=== PATIENT | female | born 1980 | race Two or more races ===

== ENCOUNTER 2023-03-04 10:12 | Emergency (ER) | payer OTHER, SELFPAY ==
[2023-03-04 10:50] VITALS: BP 113/84; PULSE 88; RESP 18; TEMP 37.2; O2SAT 95; BMI 47.9
--- NOTE | 2023-03-04 10:51 | EXP.UTC ---
Discharge Plan Disposition Patient Disposition: Home, Self-Care Condition: Good Prescriptions Prescriptions: New fluconazole 150 mg tablet 150 mg PO ONCE Qty: 1 2RF methylprednisolone 4 mg Tablets,Dose Pack 4 mg PO DIRECTED Qty: 21 0RF guaifenesin [Mucinex] 600 mg tablet extended release 12hr 600 - 1,200 mg PO BIDP PRN (Reason: Congestion) Qty: 30 0RF amoxicillin-pot clavulanate 875-125 mg Tablet 1 tab PO Q12H Qty: 20 0RF No Action lamotrigine 25 mg tablet 50 mg PO BID Patient Comments: TAKE 2 TABLETS TWICE A DAY fluoxetine 20 mg capsule 20 mg PO DAILY Patient Comments: TAKE 1 CAPSULE BY MOUTH EVERY DAY FOR 90 DAYS bupropion HCl 150 mg tablet extended release 24 hr 150 mg PO DAILY Patient Comments: TAKE 1 TABLET BY MOUTH EVERY DAY FOR 90 DAYS lisdexamfetamine [Vyvanse] 30 mg capsule 30 mg PO DAILY Patient Comments: TAKE 1 CAPSULE BY MOUTH ONCE EVERY MORNING baclofen 10 mg tablet 10 mg PO BID Patient Comments: TAKE 1 TAB(S) ORALLY TWICE DAILY NEEDED 90 DAYS Referrals Follow up/Referrals: Toby Palacios MD [Primary Care Provider] - See instructions Activity Restrictions/Add. Instructions Additional Instructions/Restrictions: Drink plenty of fluids. Take tylenol or ibuprofen for pain or fever. Take the medications as directed. Follow up with your regular doctor. GO TO THE ER FOR ANY WORSENING SYMPTOMS Clinical Impressions Clinical Impression: Sinusitis Instructions Patient Instructions: Sinusitis, DI for Sinusitis Discharge ED Provider: Josh Cobb [facility] General Stated complaint: poss sinus infection Time Seen by Provider: 03/04/23 10:51 History of Present Illness Provider Complaint: She states that for the past 2 weeks she has had sinus congestion, ear pain and a cough. She denies chest congestion and shortness of breath. Related Data Home Medications Medication Instructions Recorded Confirmed baclofen 10 mg tablet 10 mg PO BID 03/04/23 03/04/23 bupropion HCl 150 mg 24 hr tablet, 150 mg PO DAILY 03/04/23 03/04/23 extended release fluoxetine 20 mg capsule 20 mg PO DAILY 03/04/23 03/04/23 lamotrigine 25 mg tablet 50 mg PO BID 03/04/23 03/04/23 lisdexamfetamine 30 mg capsule 30 mg PO DAILY 03/04/23 03/04/23 (Vyvanse) Previous Rx's Medication Instructions Recorded amoxicillin 875 mg-potassium 1 tab PO Q12H #20 tabs 03/04/23 clavulanate 125 mg tablet fluconazole 150 mg tablet 150 mg PO ONCE 1 dose #1 tab 03/04/23 guaifenesin 600 mg tablet, 600 - 1,200 mg PO BIDP PRN 03/04/23 extended release 12 hr (Mucinex) Congestion #30 tabs methylprednisolone 4 mg tablets in 4 mg PO DIRECTED #21 tabs 03/04/23 a dose pack Allergies Allergy/AdvReac Type Severity Reaction Status Date / Time metronidazole [From Flagyl] Allergy Verified 03/04/23 11:02 Sulfa (Sulfonamide Allergy Verified 03/04/23 11:02 Antibiotics) [facility] Disclaimer: The information contained in this section may have been updated after the patient was seen, as this information can be updated by other users. Social History Smoking Status: Never smoker alcohol intake: never current occupational status: employed Travel in the last 8 weeks: None ROS Obtained: Yes All systems reviewed & no additional complaints except as documented Constitutional Constitutional: Reports poor appetite Eyes Eyes: Reports system reviewed and no additional complaints, except as documented ENT Ears, Nose, Mouth, and Throat: Reports as per HPI Cardiovascular Cardiovascular: Reports system reviewed and no additional complaints, except as documented and Denies chest pain Respiratory Respiratory: Denies shortness of breath, Denies chest congestion, Reports cough, Denies stridor and Denies wheezing Gastrointestinal Gastrointestingal: Reports system reviewed and no additional complaints, except as documented; Keshawn
[2023-03-04 11:31] VITALS: BP 113/84; PULSE 88; RESP 18; TEMP 37.2; O2SAT 95
== END 2023-03-04 11:31 | disposition home or self-care (01) ==
PROVIDERS: Emergency Provider Nurse Practitioner Family; PCP Family Medicine
DX: J01.90 Acute sinusitis, unspecified (principal); R05.9 Cough, unspecified; H92.09 Otalgia, unspecified ear
CPT/HCPCS: 99204; 99212; G0463

== ENCOUNTER 2023-12-22 18:42 | Emergency (ER) | payer OTHER, SELFPAY ==
[2023-12-22 18:43] VITALS: BP 133/81; PULSE 88; RESP 16; TEMP 36.8; O2SAT 97; BMI 31.4
[2023-12-22 18:59] LABS: Microscopic, Urine URINE MICROSCOPIC (MICROSCOPIC)
--- NOTE | 2023-12-22 19:01 | HMH.EDGENADL ---
Discharge Plan Disposition Patient Disposition: Home, Self-Care Prescriptions Prescriptions: New lidocaine 5 % adhesive patch,medicated 1 patch topical DAILY Qty: 30 0RF Rx Instructions: leave on most painful area for up to 12 hrs No Action lamotrigine 25 mg tablet 50 mg PO BID Patient Comments: TAKE 2 TABLETS TWICE A DAY fluoxetine 20 mg capsule 20 mg PO DAILY Patient Comments: TAKE 1 CAPSULE BY MOUTH EVERY DAY FOR 90 DAYS bupropion HCl 150 mg tablet extended release 24 hr 150 mg PO DAILY Patient Comments: TAKE 1 TABLET BY MOUTH EVERY DAY FOR 90 DAYS lisdexamfetamine [Vyvanse] 30 mg capsule 30 mg PO DAILY Patient Comments: TAKE 1 CAPSULE BY MOUTH ONCE EVERY MORNING baclofen 10 mg tablet 10 mg PO BID Patient Comments: TAKE 1 TAB(S) ORALLY TWICE DAILY NEEDED 90 DAYS fluconazole 150 mg tablet 150 mg PO ONCE Qty: 1 2RF methylprednisolone 4 mg Tablets,Dose Pack 4 mg PO DIRECTED Qty: 21 0RF guaifenesin [Mucinex] 600 mg tablet extended release 12hr 600 - 1,200 mg PO BIDP PRN (Reason: Congestion) Qty: 30 0RF amoxicillin-pot clavulanate 875-125 mg Tablet 1 tab PO Q12H Qty: 20 0RF Referrals Follow up/Referrals: Toby Palacios MD [Referring] - See instructions Activity Restrictions/Add. Instructions Additional Instructions/Restrictions: Call your family doctor to establish care for this visit to the emergency department and schedule follow-up within 48 hours to ensure improvement. If you have any worsening of your condition or any other concerning signs or symptoms, return to the emergency department or your primary care doctor for further evaluation. Clinical Impressions Clinical Impression: Back pain, Radiculopathy Print Language Print Language: Bol[place]ian Discharge ED Provider: Karan Rodriguez General Adult HPI General Chief complaint: PAIN Stated complaint: right side pain Time Seen by Provider: 12/22/23 18:47 Mode of Arrival: Ambulatory Source of Information: Patient Limitations: No Limitations Description of Symptoms (Recalled from ER Triage Doc. by RN): Reports right flank pain that radiates down to her hip area. States that it started approx 1 hour ago and comes in spasms. History of Present Illness HPI narrative: Please note that above description of symptoms, in this electronic medical record under categorization of recalled from ER triage doctor by RN are reflective of an initial nursing assessment, however, is not reflective of my full history and physical exam that was personally taken and clarified. Consequentially, this preceding description of symptoms, which may include the patient's categorized chief complaint in the EMR, do not reflect my personal clinical impression, and the ultimate description of history of present illness and patient stated complaints should be deferred to this section of the note. Unless stated otherwise or congruent with this section of the note, additional signs, symptoms, or incongruence should be interpreted as inaccurate with my clinical impression. Related Data Home Medications ?Medication ?Instructions ?Recorded ?Confirmed baclofen 10 mg tablet 10 mg PO BID 03/04/23 03/04/23 bupropion HCl 150 mg 24 hr tablet, 150 mg PO DAILY 03/04/23 03/04/23 extended release fluoxetine 20 mg capsule 20 mg PO DAILY 03/04/23 03/04/23 lamotrigine 25 mg tablet 50 mg PO BID 03/04/23 03/04/23 lisdexamfetamine 30 mg capsule 30 mg PO DAILY 03/04/23 03/04/23 (Vyvanse) Previous Rx's ?Medication ?Instructions ?Recorded amoxicillin 875 mg-potassium 1 tab PO Q12H #20 tabs 03/04/23 clavulanate 125 mg tablet fluconazole 150 mg tablet 150 mg PO ONCE 1 dose #1 tab 03/04/23 guaifenesin 600 mg tablet, 600 - 1,200 mg (1 - 2 x 600 mg) PO 03/04/23 extended release 12 hr (Mucinex) BIDP PRN Congestion #30 tabs methylprednisolone 4 mg tablets in 4 mg PO DIRECTED #21 tabs 03/04/23 a dose pack lidocaine 5 % topical patch 1 patch topical DAILY #30 ea 12/22/23 Allergies Allergy/AdvReac Type Severity Reaction Status Date / Time metronidazole [From Flagyl] Allergy Verified 03/04/23 11:02 Sulfa (Sulfonamide Allergy Verified 03/04/23 11:02 Antibiotics) [facility] Disclaimer: The information contained in this section may have been updated after the patient was seen, as this information can be updated by other users. Social History (Updated 03/04/23 @ 15:35 by Josh Cobb APRN) Smoking Status: Unknown if ever smoked alcohol intake: never current occupational status: employed Travel in the last 8 weeks: None ROS Obtained: Yes All systems reviewed & no additional complaints except as documented Physical Exam General General appearance: alert Head Head exam: atraumatic and normocephalic Eye Eye exam: Present normal appearance, PERRL and EOMI Neck Neck exam: Present normal inspection, full ROM and trachea midline Respiratory Respiratory exam: Absent respiratory distress, wheezes, stridor, accessory muscle use or prolonged expiratory phase Cardiovascular Cardiovascular exam: Present other (Pulses equal symmetric in upper and lower extremities) Abdominal Exam Abdominal exam: Present soft; Absent distention, tenderness or pulsatile mass Extremities Exam Extremities exam: Absent edema Back Exam Back exam: Present CVA tenderness (R); Absent CVA tenderness (L) Neurological Exam Neurological exam: Present alert, oriented X3 and CN II-XII intact; Absent motor sensory deficit Skin Skin exam: Present warm and dry; Absent diaphoresis or erythema Medical Decision Making Medical Records Medical records reviewed: Yes I reviewed the patient's medical records. Screening: Per USPSTF and CDC recommendations, given the prevalence of disease in our region, it is our hospital?s policy to screen for HIV and viral Hepatitis for all patients aged 18 and over and those with ongoing risk factors. [place] Inquiry Pt receiving controlled substance: No [place] was queried for this patient: No Vital Signs: 12/22/23 18:43 Temperature 98.3 F Temperature Source Oral Pulse Rate [Radial] 88 Respiratory Rate 16 Blood Pressure [Right Arm] 133/81 Blood Pressure Mean [Right Arm] 98 Blood Pressure Source [Right Arm] Automatic Cuff Blood Pressure Position [Right Arm] Sitting 02 Sat by Pulse Oximetry 97 Oxygen Delivery Method Room Air Lab Data Lab Results 12/22/23 18:50: Urine Color Yellow, Urine Appearance Clear, Urine pH 6.0, Ur Specific [place] <= 1.005, Urine Protein Negative, Urine Glucose (UA) Negative, Urine Ketones Negative, Urine Blood Negative, Urine Nitrate Negative, Urine Bilirubin Negative, Urine Urobilinogen 0.2, Ur Leukocyte Esterase Negative, Urine RBC Occasional, Urine WBC Occasional, Ur Squamous Epith Cells Occasional 12/22/23 18:55: Sodium 139, Potassium 3.6, Chloride 112 H, Carbon Dioxide 20 L, Anion Gap 10.6, BUN 7, Creatinine 0.70, Estimated Creat Clear 150, Estimated GFR 90, Est GFR ( Amer) 109, Glucose 94, Calcium 9.3, Total Bilirubin 1.1, AST 56 H, ALT 21, Alkaline Phosphatase 92, Troponin I 0.01, Total Protein 7.0, Albumin 4.2, Globulin 2.8, Albumin/Globulin Ratio 1.5, Lipase 136, HIV 1&2 Antibody Rapid Nonreactive 12/22/23 19:02: WBC 8.6, RBC 4.53, Hgb 13.7, Hct 43.5, MCV 96.0, MCH 30.3, MCHC 31.6 L, RDW 14.3, Plt Count 310, MPV 9.4, Neut % (Auto) 68.9, Lymph % (Auto) 22.7, [place] % (Auto) 6.3, Eos % (Auto) 1.3, Baso % (Auto) 0.7, Neut # (Auto) 5.9, Lymph # (Auto) 2.0, [place] # (Auto) 0.5, Eos # (Auto) 0.1, Baso # (Auto) 0.1 12/22/23 19:02 12/22/23 18:55 Orders (Tests/Meds): ED MEDICATIONS Generic Name Dose Route Start Last Admin Trade Name Nadeen PRN Reason Stop Dose Admin Sodium Chloride 10 ml 12/22/23 19:08 Sodium Chloride 0.9% 10ml Flush Syringe IV 01/21/24 19:07 NEEDED PRN Maintain IV Site Discontinued Medications Generic Name Dose Route Start Last Admin Trade Name Frekulwant PRN Reason Stop Dose Admin Ketorolac Tromethamine 15 mg 12/22/23 18:55 12/22/23 19:17 Ketorolac 30mg/Ml Vial IV 12/22/23 18:56 15 mg ONCE ONE Administration Lidocaine 1 each 12/22/23 18:55 12/22/23 19:17 Lidocaine 5% Transdermal Patch TP 12/22/23 18:56 1 each ONCE ONE Administration Ondansetron HCl 4 mg 12/22/23 19:32 12/22/23 19:36 Ondansetron 4mg/2ml Vial IV 12/22/23 19:33 4 mg ONCE ONE Administration ORDERS Category Date Time Status Complete Blood Count Auto Diff Stat Lab 12/22/23 19:02 Completed Comprehensive Metabolic Panel Stat Lab 12/22/23 18:55 Completed HIV (1&2) Antibody Rapid Stat Lab 12/22/23 18:55 Completed Hep C Ab with Reflex to RNA Stat Lab 09/25/24 19:05 Received Lipase Stat Lab 12/22/23 18:55 Completed Troponin I Q3H Lab 12/22/23 22:00 Ordered Troponin I Q3H Lab 12/23/23 01:00 Ordered Troponin I Stat Lab 12/22/23 18:55 Completed Urinalysis and Microscopic Stat Lab 12/22/23 18:50 Completed Medical Decision Narrative: 43-year-old female history of degenerative disc disease, cholecystectomy, hysterectomy, chronic back pain presenting with right flank pain. Patient states earlier today, she started having right flank pain. Comes in spurts, severe and sharp in intensity, does not radiate. Not associated with nausea, vomiting, shortness of breath, cough, chest pain, or any other symptoms. States that the pain is minimal at baseline, severe when flaring up, nothing in particular makes it flareup other than changes in position. Intermittently radiating down right leg. History was obtained via conversation with patient. On arrival, patient hemodynamically stable, alert, oriented x4, appropriate, GCS 15, moving all extremities spontaneously, pupils equal and reactive to light. Full physical exam performed and significant for well-appearing 43-year-old female no acute distress. Intermittently having bursts of pain, holding her right flank. No midline spinal tenderness, but does have paraspinal right-sided lower chest wall versus right flank to percussion. No overlying skin changes. Cardiopulmonary exam within normal limits, neurovascularly intact. Differential includes radiculopathy, muscle spasm, nephrolithiasis, hepatitis, among others. Patient placed on continuous cardiac monitoring and continuous pulse ox with initial blood pressure 133/81, heart rate 88, saturation 97% on room air. Patient was given Toradol and lidocaine patch for symptomatic management and correction of underlying abnormalities. Workup independently interpreted and significant for nonactionable hematologic workup and negative urine. CT of the thoracic spine was considered, but given patient has no motor deficits and known degenerative disc disease, likely radiculopathy and not deemed necessary at this time. On reevaluation, patient is feeling a little better with lidocaine patch, nauseated, given Zofran. Steroid offered, but patient is recently enrolled in clinical study where she is unable to take any immune suppressants, so conservative management needed at this time. Lidocaine patches sent to the pharmacy. Because patient at baseline without signs or symptoms of clinical decompensation, deemed appropriate for discharge. Results were relayed to patient who voiced understanding and were agreeable to outpatient management and follow up. I discussed my clinical impression with patient and answered all questions. At this time, the evidence for any other entities in the differential is insufficient to warrant any further testing or ED observation. This was explained as well. Advisory was given that persistent or worsening symptoms require further evaluation. I confirmed the understanding of this discussion. Conference Interpreter disclaimer Much of this encounter note is an electronic acid plant helper spoken language to printed text. Electronic acid plant helper of the spoken language may permit errors. Although I have reviewed the note, some errors may still exist. Critical Care Critical Care Time Critical Care Time: No
[2023-12-22 19:17] LABS: Appearance,Urine CLEAR (Clear); Bilirubin,Urine Negative (Negative); Blood, Urine Negative (Negative); Color,Urine YELLOW (Yellow); Glucose,Urine (UA) Negative (Negative); Ketones,Urine Negative (Negative); Leukocyte Esterase,Urine Negative (Negative); Nitrate,Urine Negative (Negative); Protein,Urine Negative (Negative); Specific Gravity, Urine <= 1.005 (1.005-1.030); Urobilinogen,Urine 0.2 EU/dl (0.2)
[2023-12-22] MEDS: LIDOCAINE 5% TRANSDERMAL PATCH 1 EACH TP (19:17)
[2023-12-22] MEDS: KETOROLAC 30MG/ML VIAL 15 MG IV (19:17)
[2023-12-22 19:22] LABS: Albumin Level 4.2 g/dl (3.5-5.0); Chloride 112 mmol/L (98-107); Potassium 3.6 mmoL/L (3.5-5.1); Sodium 139 mmol/L (136-145)
[2023-12-22 19:25] LABS: Alanine Aminotransferase 21 U/L (12-78); Albumin/Globulin Ratio 1.5 (1.1-1.8); Alkaline Phosphatase 92 U/L (38-126); Anion Gap 10.6 mEq/L (5-15); Aspartate Amino Transferase 56 U/L (14-36); Bilirubin,Total 1.1 mg/dl (0.2-1.3); Blood Urea Nitrogen 7 mg/dl (7-17); Carbon Dioxide 20 mmol/L (22.0-30.0); Creatinine Clearance Estimated 150 mL/min (50-200); Estimated Glomerular Filt Rate 90 ml/min (>60); GFR (African American) 109 ML/MIN (>60); Globulin 2.8 g/dL (1.3-3.2); Lipase 136 U/L (23-300)
[2023-12-22 19:26] LABS: Calcium 9.3 mg/dl (8.4-10.2); Glucose 94 mg/dl (74-100)
[2023-12-22 19:34] LABS: RBC,Urine Occasional #/hpf (0-3); Squamous Epithelial Cell,Urine Occasional #/hpf (0-5); WBC,Urine Occasional #/hpf (0-3)
[2023-12-22 19:35] VITALS: BP 135/84; PULSE 70; O2SAT 93
[2023-12-22] MEDS: ONDANSETRON 4MG/2ML VIAL 4 MG IV (19:36)
[2023-12-22 19:40] LABS: Troponin I 0.01 ng/ml (0.00-0.034)
[2023-12-22 19:51] LABS: Basophils # 0.1 K/mm3 (0-0.2); Basophils % 0.7 % (0.1-2.0); Eosinophils # 0.1 K/mm3 (0.0-0.4); Eosinophils % 1.3 % (0.1-12.0); Hematocrit 43.5 % (37.0-47.0); Hemoglobin 13.7 g/dL (12.2-16.2); Lymphocytes % 22.7 % (10-50); Mean Corpuscular HGB Conc 31.6 g/dL (31.8-35.4); Mean Corpuscular Hemoglobin 30.3 pg (27.0-31.2); Mean Platelet Volume 9.4 fl (7.4-10.4); Monocytes # 0.5 K/mm3 (0.1-1.0); Monocytes % 6.3 % (1.7-9.3); Neutrophils # 5.9 K/mm3 (1.8-7.8); Neutrophils % 68.9 % (37.0-80.0); Platelet Count 310 K/mm3 (142-424); Red Blood Count 4.53 M/mm3 (4.20-5.40); Red Cell Distribution Width 14.3 % (11.5-17.5); White Blood Count 8.6 K/mm3 (4.8-10.8)
[2023-12-22 19:54] LABS: HIV (1&2) Antibody Rapid NONREACTIVE (NONREACTIVE)
[2023-12-22 20:26] VITALS: BP 140/70; PULSE 73; RESP 19; TEMP 36.8; O2SAT 98
[2023-12-24 07:13] LABS: HCV Ab Non Reactive (Non Reactive)
== END 2023-12-22 20:28 | disposition home or self-care (01) ==
PROVIDERS: Emergency Provider Emergency Medicine
DX: M54.16 Radiculopathy, lumbar region (principal); M62.830 Muscle spasm of back
CPT/HCPCS: 80053; 81001; 83690; 84484; 85025; 86803; 87389; 96374; 96375; 99284; J1885; J2405

== ENCOUNTER 2024-03-24 21:34 | Emergency (ER) | payer OTHER, SELFPAY ==
[2024-03-24 21:39] VITALS: BP 134/98; PULSE 114; RESP 20; TEMP 37.1; O2SAT 96; BMI 30.5
--- NOTE | 2024-03-24 21:47 | PC.NURSE ---
Report given to Sol ROY Skin pink warm and dry Resp full and easy Speech clear and appropriate. Gait steady
[2024-03-24] MEDS: SODIUM CHLORIDE 0.9% 25ML BAG 25 ML IV (22:05)
[2024-03-24] MEDS: PROMETHAZINE HCL 25MG/ML 1ML VIAL 12.5 MG IV (22:05)
[2024-03-24] MEDS: ACETAMINOPHEN 1,000MG/100ML VIAL 1000 MG IV (22:05)
[2024-03-24] MEDS: LACTATED RINGERS 1000ML 1,000 ML 999 ML IV (22:06)
[2024-03-24] MEDS: KETOROLAC 30MG/ML VIAL 15 MG IV (22:06)
--- NOTE | 2024-03-24 22:12 | HMH.EDGENADL ---
Discharge Plan Disposition Patient Disposition: Home, Self-Care Condition: Good Prescriptions Prescriptions: New ondansetron 4 mg tablet,disintegrating 4 mg PO Q8H PRN (Reason: nausea and vomiting) 4 Days Qty: 12 0RF No Action lamotrigine 25 mg tablet 50 mg PO BID Patient Comments: TAKE 2 TABLETS TWICE A DAY fluoxetine 20 mg capsule 20 mg PO DAILY Patient Comments: TAKE 1 CAPSULE BY MOUTH EVERY DAY FOR 90 DAYS bupropion HCl 150 mg tablet extended release 24 hr 150 mg PO DAILY Patient Comments: TAKE 1 TABLET BY MOUTH EVERY DAY FOR 90 DAYS lisdexamfetamine [Vyvanse] 30 mg capsule 30 mg PO DAILY Patient Comments: TAKE 1 CAPSULE BY MOUTH ONCE EVERY MORNING baclofen 10 mg tablet 10 mg PO BID Patient Comments: TAKE 1 TAB(S) ORALLY TWICE DAILY NEEDED 90 DAYS fluconazole 150 mg tablet 150 mg PO ONCE Qty: 1 2RF methylprednisolone 4 mg Tablets,Dose Pack 4 mg PO DIRECTED Qty: 21 0RF guaifenesin [Mucinex] 600 mg tablet extended release 12hr 600 - 1,200 mg PO BIDP PRN (Reason: Congestion) Qty: 30 0RF amoxicillin-pot clavulanate 875-125 mg Tablet 1 tab PO Q12H Qty: 20 0RF lidocaine 5 % adhesive patch,medicated 1 patch topical DAILY Qty: 30 0RF Rx Instructions: leave on most painful area for up to 12 hrs Referrals Follow up/Referrals: Toby Palacios MD [Primary Care Provider] - See instructions Activity Restrictions/Add. Instructions Additional Instructions/Restrictions: You were evaluated in the emergency department today. I sent in Zofran for you to have as needed for nausea and vomiting. Make sure you stay hydrated. Follow-up very closely with your primary care provider. Return to the emergency department for new or worsening symptoms. Clinical Impressions Clinical Impression: Headache, Nausea & vomiting Stand Alone Forms Stand Alone Forms: Work/School Release Instructions Patient Instructions: DI for Diarrhea and Traveler's Diarrhea -- Adult, DI for Nausea -- Adult Print Language Print Language: Cambodian Discharge ED Provider: Maya Villeda General Adult HPI General Chief complaint: Nausea/Vomiting/Diarrhea Stated complaint: h/a, vomiting Time Seen by Provider: 03/24/24 21:57 Mode of Arrival: Ambulatory Source of Information: Patient Limitations: No Limitations Description of Symptoms (Recalled from ER Triage Doc. by RN): Pt states she has been vomiting all day and has headache Exposed to multiple patients with viral illnesses at work History of Present Illness HPI narrative: This patient is a 43-year-old female presenting to the emergency department for evaluation with concern for nausea and vomiting. She states that it started at 5:00 AM and she has not been able to keep any thing down since around 8:00 PM last night. She is now complaining of significant headache. No neurologic deficits, abdominal pain, changes of bowel movements, or other concerns. 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 Related Data Home Medications ?Medication ?Instructions ?Recorded ?Confirmed baclofen 10 mg tablet 10 mg PO BID 03/04/23 03/04/23 bupropion HCl 150 mg 24 hr tablet, 150 mg PO DAILY 03/04/23 03/04/23 extended release fluoxetine 20 mg capsule 20 mg PO DAILY 03/04/23 03/04/23 lamotrigine 25 mg tablet 50 mg PO BID 03/04/23 03/04/23 lisdexamfetamine 30 mg capsule 30 mg PO DAILY 03/04/23 03/04/23 (Vyvanse) Previous Rx's ?Medication ?Instructions ?Recorded amoxicillin 875 mg-potassium 1 tab PO Q12H #20 tabs 03/04/23 clavulanate 125 mg tablet fluconazole 150 mg tablet 150 mg PO ONCE 1 dose #1 tab 03/04/23 guaifenesin 600 mg tablet, 600 - 1,200 mg (1 - 2 x 600 mg) PO 03/04/23 extended release 12 hr (Mucinex) BIDP PRN Congestion #30 tabs methylprednisolone 4 mg tablets in 4 mg PO DIRECTED #21 tabs 03/04/23 a dose pack lidocaine 5 % topical patch 1 patch topical DAILY #30 ea 12/22/23 ondansetron 4 mg disintegrating 4 mg PO Q8H PRN nausea and 03/25/24 tablet vomiting 4 days #12 tabs Allergies Allergy/AdvReac Type Severity Reaction Status Date / Time metronidazole (From Flagyl) Allergy Verified 03/04/23 11:02 Sulfa (Sulfonamide Allergy Verified 03/04/23 11:02 Antibiotics) [facility] Disclaimer: The information contained in this section may have been updated after the patient was seen, as this information can be updated by other users. Social History Smoking Status: Never smoker alcohol intake: never current occupational status: employed Travel in the last 8 weeks: None Have you lived/traveled outside [place] in past 30 days?: No Contact w/someone who lives/traveled outside [place] past 30 days?: No Exposure to someone with infectious disease in past 14 days?: No Do you have a fever (greater than 100.4 F or 38 C)?: No Have you tested positive for COVID-19: No Exposed to someone with COVID-19 in past 14 days?: No Do you have a sore throat?: No Do you have a cough?: No Do you have any weakness?: No Do you have any diarrhea?: No Are you experiencing any unusual bleeding?: No Do you have any muscle aches/pain?: No Do you have any abdominal pain?: No Are you experiencing loss of taste or smell?: No ROS Obtained: Yes All systems reviewed & no additional complaints except as documented Physical Exam General General appearance: alert and in no apparent distress Head Head exam: atraumatic and normocephalic Eye Eye exam: Present normal appearance, PERRL and EOMI ENT ENT exam: Present normal oropharynx, mucous membranes dry and normal external ear exam Neck Neck exam: Present normal inspection, full ROM and trachea midline; Absent tenderness Chest Chest inspection: Present normal inspection and symmetric chest wall rise; Absent tenderness Respiratory Respiratory exam: Present normal lung sounds bilaterally; Absent respiratory distress, wheezes, stridor or accessory muscle use Cardiovascular Cardiovascular exam: Present normal rhythm and tachycardia Abdominal Exam Abdominal exam: Present soft; Absent distention, tenderness, guarding or rebound Extremities Exam Extremities exam: Present normal inspection, full ROM and normal capillary refill; Absent tenderness or edema Back Exam Back exam: Present normal inspection and full ROM; Absent tenderness Neurological Exam Neurological exam: Present alert, oriented X3, CN II-XII intact and normal gait; Absent motor sensory deficit Psychiatric Psychiatric exam: Present normal affect and normal mood Skin Skin exam: Present warm and dry Medical Decision Making Medical Records Medical records reviewed: Yes I reviewed the patient's medical records. Screening: Per USPSTF and CDC recommendations, given the prevalence of disease in our region, it is our hospital?s policy to screen for HIV and viral Hepatitis for all patients aged 18 and over and those with ongoing risk factors. [place] Inquiry Pt receiving controlled substance: No Vital Signs: 03/24/24 21:39 Temperature 98.8 F Temperature Source Oral Pulse Rate [Right Brachial] 114 H Respiratory Rate 20 Blood Pressure [Right Arm] 134/98 H Blood Pressure Mean [Right Arm] 110 Blood Pressure Source [Right Arm] Automatic Cuff Blood Pressure Position [Right Arm] Sitting 02 Sat by Pulse Oximetry 96 Oxygen Delivery Method Room Air Lab Data Lab results reviewed: Yes I reviewed the patient's lab results. Lab Results 03/24/24 19:43: WBC 7.4, RBC 4.67, Hgb 13.7, Hct 42.0, MCV 89.9, MCH 29.3, MCHC 32.6, RDW 12.5, Plt Count 295, MPV 9.6, Neut % (Auto) 87.7 H, Lymph % (Auto) 6.2 L, [place] % (Auto) 4.9, Eos % (Auto) 0.4, Baso % (Auto) 0.3, Neut # (Auto) 6.5, Lymph # (Auto) 0.5 L, [place] # (Auto) 0.4, Eos # (Auto) 0.0, Baso # (Auto) 0.0, Total Counted 100, Neutrophils % (Manual) 82 H, Lymphocytes % (Manual) 11, Atypical Lymphs % 1.0, Monocytes % (Manual) 6, Platelet Estimate Normal, RBC Morphology Normal, Sodium 135 L, Potassium 3.8, Chloride 105, Carbon Dioxide 27, Anion Gap 6.8, BUN 9, Creatinine 0.70, Estimated Creat Clear 142, Estimated GFR 90, Est GFR ( Amer) 109, Glucose 94, Calcium 9.3, Total Bilirubin 0.6, AST 24, ALT 16, Alkaline Phosphatase 92, Total Protein 6.1 L, Albumin 3.7, Globulin 2.4, Albumin/Globulin Ratio 1.5, Lipase 51, Serum HCG, Qual Negative, SARS-CoV-2 (PCR) Not detected, Influenza A Untype (PCR) Not detected, Influenza Type B (PCR) Not detected 03/24/24 19:43 03/24/24 19:43 Orders (Tests/Meds): ED MEDICATIONS Discontinued Medications Generic Name Dose Route Start Last Admin Trade Name Freq PRN Reason Stop Dose Admin Acetaminophen 1,000 mg 03/24/24 22:00 03/24/24 22:05 Acetaminophen 1,000mg/100ml Vial IV 03/24/24 22:01 1,000 mg ONCE ONE Administration Lactated Ringer's 1,000 mls @ 999 mls/hr 03/24/24 22:00 03/24/24 22:06 Lactated Ringer's 1000 Ml Bag IV 03/24/24 23:00 999 mls/hr .Q1H1M ONE Administration Ketorolac Tromethamine 15 mg 03/24/24 22:00 03/24/24 22:06 Ketorolac 30mg/Ml Vial IV 03/24/24 22:01 15 mg ONCE ONE Administration Promethazine HCl 12.5 mg 03/24/24 22:00 03/24/24 22:05 Promethazine Hcl 25mg/Ml 1ml Vial IV 03/24/24 22:01 12.5 mg ONCE ONE Administration Sodium Chloride 25 ml 03/24/24 22:00 03/24/24 22:05 Sodium Chloride 0.9% 25ml Bag IV 03/24/24 22:01 25 ml ONCE ONE Administration ORDERS Category Date Time Status Complete Blood Count Auto Diff Stat Lab 03/24/24 19:43 Completed Comprehensive Metabolic Panel Stat Lab 03/24/24 19:43 Completed Lipase Stat Lab 03/24/24 19:43 Completed Rapid PCR Covid and Flu A/B Stat Lab 03/24/24 19:43 Completed Serum [HCG Qualitative, Serum] Stat Lab 03/24/24 19:43 Completed Medical Decision Narrative: In summary, this patient is a 43-year-old female presenting to the Emergency Department for evaluation of nausea, vomiting, headache. Differential diagnoses considered include but are not limited to viral syndrome, gastroenteritis, dehydration, electrolyte derangements, GINA, pancreatitis, migraine. Ruling out the most morbid conditions drove assessment. On exam, the patient is very well-appearing. She is mildly tachycardic with slightly dry mucous membranes, but she has benign abdominal exam and is nontoxic-appearing. She is alert, conversational, pleasant. Will obtain CBC, CMP, lipase, viral swab. Will give the patient a bolus of IV fluids as well as IV Phenergan, Toradol, acetaminophen for symptomatic improvement. On reassessment, she is feeling better and is able to tolerate oral intake. Labs are very reassuring. Overall at this time, I feel the patient is appropriate for discharge home with prescription for Zofran, instructions for supportive management of likely gastroenteritis, and strict return precautions. She was discharged after all questions were answered. Critical Care Critical Care Time Critical Care Time: No
[2024-03-24 22:39] LABS: Basophils % 0.3 % (0.1-2.0); Eosinophils % 0.4 % (0.1-12.0); Hemoglobin 13.7 g/dL (12.2-16.2); Lymphocytes # 0.5 K/mm3 (0.7-4.5); Lymphocytes % 6.2 % (10-50); Mean Corpuscular HGB Conc 32.6 g/dL (31.8-35.4); Mean Corpuscular Hemoglobin 29.3 pg (27.0-31.2); Mean Corpuscular Volume 89.9 fl (81-99); Mean Platelet Volume 9.6 fl (7.4-10.4); Monocytes # 0.4 K/mm3 (0.1-1.0); Monocytes % 4.9 % (1.7-9.3); Neutrophils # 6.5 K/mm3 (1.8-7.8); Neutrophils % 87.7 % (37.0-80.0); Platelet Count 295 K/mm3 (142-424); Red Blood Count 4.67 M/mm3 (4.20-5.40); Red Cell Distribution Width 12.5 % (11.5-17.5); White Blood Count 7.4 K/mm3 (4.8-10.8)
[2024-03-24 22:42] LABS: Albumin Level 3.7 g/dl (3.5-5.0); Chloride 105 mmol/L (98-107); Potassium 3.8 mmoL/L (3.5-5.1); Sodium 135 mmol/L (136-145)
[2024-03-24 22:44] LABS: Blood Urea Nitrogen 9 mg/dl (7-17); Creatinine Clearance Estimated 142 mL/min (50-200); Estimated Glomerular Filt Rate 90 ml/min (>60); GFR (African American) 109 ML/MIN (>60)
[2024-03-24 22:45] LABS: Alanine Aminotransferase 16 U/L (12-78); Albumin/Globulin Ratio 1.5 (1.1-1.8); Alkaline Phosphatase 92 U/L (38-126); Anion Gap 6.8 mEq/L (5-15); Aspartate Amino Transferase 24 U/L (14-36); Bilirubin,Total 0.6 mg/dl (0.2-1.3); Calcium 9.3 mg/dl (8.4-10.2); Carbon Dioxide 27 mmol/L (22.0-30.0); Globulin 2.4 g/dL (1.3-3.2); Glucose 94 mg/dl (74-100); HCG Qualitative, Serum Negative (Negative); Lipase 51 U/L (23-300); Total Protein,Serum 6.1 g/dl (6.3-8.2)
[2024-03-24 22:57] LABS: MANUAL DIFFERENTIAL MANUAL DIFFERENTIAL (MANUAL DIFF)
[2024-03-24 23:03] LABS: Coronavirus 19, PCR Not Detected (NotDetected); Influenza A, PCR Not Detected (NotDetected); Influenza B, PCR Not Detected (NotDetected)
[2024-03-24 23:44] LABS: Lymphocytes % 11 % (10-50); Monocytes % 6 % (2-9); Neutrophils % 82 % (42-76); Platelet Estimate Normal; RBC Morphology Normal; Total Cells Counted 100
[2024-03-25 00:13] VITALS: BP 128/78; PULSE 68; RESP 18; TEMP 36.6; O2SAT 94
== END 2024-03-25 00:23 | disposition home or self-care (01) ==
PROVIDERS: Emergency Provider Emergency Medicine; PCP Emergency Medicine
DX: R51.9 Headache, unspecified (principal); R11.2 Nausea with vomiting, unspecified
CPT/HCPCS: 80053; 83690; 84703; 85007; 85025; 85027; 87636; 96361; 96374; 96375; 99283; J0131; J1885; J2550; J7120